=== PATIENT | male | born 1990 | race African-American/Black ===

== ENCOUNTER 2019-01-17 18:54 | Emergency (ER) | payer SELFPAY ==
[~2019-01-17] VITALS: Ht 188 cm; Wt 83.9 kg
--- NOTE | 2019-01-17 19:59 | NUR ---
BIBS.C/O "HAVING HEADACHE X2 MONTHS WITH NO RELIEF FROM OTC MEDICATIONS" -SOB AOX4. VSS. -NEURO DEFICIT. AMBULATORY
[2019-01-17 20:37] LABS: EOSINOPHILS % (AUTO) 2.4 % (0.0-6.0); HEMATOCRIT 46 % (39-51); HEMOGLOBIN 14.9 g/dL (13.5-17.5); LYMPHOCYTES % (AUTO) 54.6 % (20.0-44.0); MEAN CORPUSCULAR HGB CONC 33 g/dl (31.0-36.0); MEAN CORPUSCULAR VOLUME 91 fL (80-96); MONOCYTES # (AUTO) 0.3 /CMM (0.1-1.30); MONOCYTES % (AUTO) 7.4 % (2.0-12.0); NEUTROPHILS # (AUTO) 1.3 /CMM (1.8-8.9); NEUTROPHILS % (AUTO) 34.6 % (43.0-81.0); PLATELET COUNT (AUTO) 254 /CMM (150-450); RED BLOOD CELL COUNT(AUTO) 5.03 MIL/uL (4.5-6.0); WHITE BLOOD COUNT (AUTO) 3.7 K/uL (4.3-11.0)
[2019-01-17] MEDS ORDERED: METOCLOPRAMIDE HCL 10 MG/2 ML VIAL ONE (20:41)
[2019-01-17] MEDS ORDERED: IBUPROFEN 600 MG TABLET PO ONE (20:41)
[2019-01-17] MEDS ORDERED: diphenhydrAMINE HCL 50 MG/ML VIAL ONE (20:41)
[2019-01-17 20:46] LABS: CALCIUM, SERUM 9.4 mg/dL (8.5-10.1); CREATININE 1.4 mg/dL (0.6-1.3); POTASSIUM 4.4 mmol/L (3.5-5.1)
[2019-01-17] MEDS: METOCLOPRAMIDE HCL 10 MG/2 ML VIAL IV ONE (20:59)
[2019-01-17] MEDS: IBUPROFEN 600 MG TABLET PO ONE (20:59)
[2019-01-17] MEDS: diphenhydrAMINE HCL 50 MG/ML VIAL IV ONE (20:59)
--- NOTE | 2019-01-17 21:54 | NUR ---
Patient discharged to home in stable condition. Written and verbal after care instructions given. Patient verbalizes understanding of instruction. IV removed. Catheter intact and site benign. Pressure and 4x4 applied to site. No bleeding noted. ambulatory with a steady gait noted. pt aaox4 no acute distress noted, resp even and unlabored.
[2019-01-17 21:55] VITALS: BP 124/75
== END 2019-01-17 21:55 | disposition home or self-care (01) ==
LOC: EDSEX 18:57 → ER 18:57
DX: R51 Headache (principal); Z60.2 Problems related to living alone
CPT/HCPCS: 36415; 70450; 80048; 85025; 96374; 96375; 99284; J1200; J2765